=== PATIENT | female | born 1995 | race Caucasian/White ===

== ENCOUNTER 2018-11-26 01:28 | Emergency (ER) | payer SELFPAY ==
[~2018-11-26] VITALS: Ht 157.5 cm; Wt 50.8 kg
[2018-11-26 01:37] VITALS: BP 148/95
== END 2018-11-26 06:49 | disposition left against medical advice (07) ==
LOC: ER 05:06
DX: R55 Syncope and collapse (principal); Z53.21 Procedure and treatment not carried out due to patient leaving prior to being seen by health care provider